=== PATIENT | female | born 1960 | race Caucasian/White ===

== ENCOUNTER 2019-02-14 12:14 | Emergency (ER) | payer OTHER ==
[~2019-02-14] VITALS: Ht 157.5 cm; Wt 58.5 kg
[2019-02-14 12:14] VITALS: BP_SYST 124
--- NOTE | 2019-02-14 12:14 | NUR ---
BROUGHT IN BY [facility] AND PLACED IN BED #2, TRIAGED. REPORT GIVEN TO JONNIE
--- NOTE | 2019-02-14 12:15 | NUR ---
Patient brought in by ambulance in the ED c/o right-sided hip pain, she works at [employer] and a big box fell on her right hip. Denied any chest pain, SOB or dizziness. Patient is alert and oriented x4, respirations even and unlabored, speaking in full sentences, and ambulating with a steady gait. VSS, pain level 7/10. Informed of the wait time. Instructed to notify ED staff for any changes in condition or worsening of symptoms. Patient verbalized understanding.
--- NOTE | 2019-02-14 12:35 | NUR ---
ER Dr. Haley at bedside examining patient.
--- NOTE | 2019-02-14 12:41 | NUR ---
X-ray done at bedside. Patient tolerated the procedure well.
[2019-02-14] MEDS ORDERED: IBUPROFEN 800 MG TABLET PO ONE (14:30)
--- NOTE | 2019-02-14 16:00 | NUR ---
Patient given written and verbal discharge instructions and verbalizes understanding. ER MD discussed with patient the results and treatment provided. Patient in stable condition. ID arm band removed. Rx of Ibuprofen and Tramadol given. Patient educated on pain management and to follow up with PMD. Pain Scale 3/10. Opportunity for questions provided and answered. Medication side effect fact sheet provided.
[2019-02-14 16:26] VITALS: BP_SYST 124
== END 2019-02-14 16:00 | disposition home or self-care (01) ==
LOC: SED 12:14
DX: S70.01XA Contusion of right hip, initial encounter (principal); W20.8XXA Other cause of strike by thrown, projected or falling object, initial encounter; Y93.89 Activity, other specified; Y92.513 Shop (commercial) as the place of occurrence of the external cause; Y99.8 Other external cause status
CPT/HCPCS: 73502; 73552; 99283